=== PATIENT | female | born 1955 | race Hispanic/Latino ===

== ENCOUNTER → 2020-06-30 | Day surgery (SDC) | payer MEDICARE, OTHER ==
[2020-06-26 12:19] LABS: BASOPHILS % 0.5 % (0.0-1.0); EOSINOPHILS # (AUTO) 0.1 (0.0-0.4); EOSINOPHILS % 0.8 % (0.0-6.0); HEMATOCRIT 36.8 % (34.2-44.1); HEMOGLOBIN 12.2 g/dL (12.0-16.0); LYMPHOCYTES # (AUTO) 2.9 (1.0-3.2); LYMPHOCYTES % 35.1 % (18.0-39.1); MEAN CORPUSCULAR HEMOGLOBIN 30.4 pg (28-32); MEAN CORPUSCULAR HGB CONC 33.2 g/dL (31-35); MEAN CORPUSCULAR VOLUME 91.8 fL (81-99); MONOCYTES # (AUTO) 0.5 (0.2-0.8); MONOCYTES % 6.2 % (4.4-11.3); NEUTROPHILS # (AUTO) 4.7 (2.1-6.9); NEUTROPHILS % 57.2 % (38.7-80.0); PLATELET COUNT 290 x10e3/uL (140-360); RED BLOOD COUNT 4.01 x10e6/uL (3.6-5.1); RED CELL DISTRIBUTION WIDTH 12.4 % (11.7-14.4)
[~2020-06-30] MED LIST: ACETAMINOPHEN80 M1 PO; AMLODIPINE BESY10 MG PO; ASPIRIN81 MG; FENTANYL CITRATE/PF 100MCG/2 ML INJ ONE; LIDOCAINE HCL 2% LOCAL INJ 5 ML SDV VIAL INJ ONE; LOSARTAN POTASS25 MG; METFORMIN HCL850 MG PO; MIDAZOLAM HCL 2 MG/2 ML VIAL ONE; PROPOFOL IV EMULSION 10 MG/ML 20 ML VIAL ONE; SIMVASTATIN20 MG PO; VITAMIN D250 MC1
[2020-06-30 13:16] VITALS: BP 114/63
== END | disposition home or self-care (01) ==
LOC: OR 09:12
PROVIDERS: ATTEND Internal Medicine Gastroenterology
DX: R19.5 Other fecal abnormalities (principal); Z85.038 Personal history of other malignant neoplasm of large intestine; D12.3 Benign neoplasm of transverse colon; D12.4 Benign neoplasm of descending colon; K29.70 Gastritis, unspecified, without bleeding; K26.9 Duodenal ulcer, unspecified as acute or chronic, without hemorrhage or perforation; K20.9 Esophagitis, unspecified; K22.8 Other specified diseases of esophagus; K44.9 Diaphragmatic hernia without obstruction or gangrene; K64.8 Other hemorrhoids; R00.1 Bradycardia, unspecified; I69.351 Hemiplegia and hemiparesis following cerebral infarction affecting right dominant side; I10 Essential (primary) hypertension; E78.5 Hyperlipidemia, unspecified; E11.9 Type 2 diabetes mellitus without complications; I45.10 Unspecified right bundle-branch block; Z01.810 Encounter for preprocedural cardiovascular examination; Z01.812 Encounter for preprocedural laboratory examination; Z11.59 Encounter for screening for other viral diseases; Z79.84 Long term (current) use of oral hypoglycemic drugs; Z79.82 Long term (current) use of aspirin; Z87.01 Personal history of pneumonia (recurrent); Z87.898 Personal history of other specified conditions; Z92.21 Personal history of antineoplastic chemotherapy
CPT/HCPCS: 36415 ×2; 43239; 45380; 45384; 82948; 85025; 93005; J2001; J2250; J2704; J3010; U0002; 43235; 45378